=== PATIENT | female | born 1990 | race Two or more races ===

== ENCOUNTER 2018-08-19 09:49 | Emergency (ER) | payer MEDICAID ==
[~2018-08-19] VITALS: Ht 165.1 cm; Wt 82.0 kg
[2018-08-19] MEDS ORDERED: ONDANSETRON HCL 4MG/2ML INJ IV STA (10:45)
[2018-08-19] MEDS ORDERED: MORPHINE SULFATE 4 MG/ML CPJ (NOT FOR IM USE) IV STA (10:45)
[2018-08-19] MEDS ORDERED: SODIUM CHLORIDE 0.9% 1,000 ML IV ONE (10:45)
[2018-08-19 11:18] LABS: EOSINOPHILS % 1.9 % (0.0-5.0); HEMOGLOBIN. 12.9 g/dL (12.0-16.0); MEAN CORPUSCULAR VOLUME 96.9 fL (81.0-99.0); MONOCYTES % 11.4 % (2.0-8.0); NEUTROPHILS % 55.7 % (40.0-76.0); RED BLOOD CELL COUNT 3.92 mill/uL (4.2-5.4); RED CELL DISTRIBUTION WIDTH 12.6 % (11.6-14.6)
[2018-08-19 11:24] LABS: CHLORIDE 107 mEq/L (98-107)
[2018-08-19 11:27] LABS: PARTIAL THROMBOPLASTIN TIME 20.8 sec (23.4-31.0); PROTHROMBIN TIME 9.8 sec (9.1-11.1)
[2018-08-19 11:29] LABS: CLARITY URINE CLEAR (CLEAR); COLOR URINE YELLOW (YELLOW); KETONES URINE TRACE (NEGATIVE); LEUKOCYTE ESTERASE URINE NEGATIVE (NEGATIVE); NITRITE URINE NEGATIVE (NEGATIVE); OCCULT BLOOD URINE NEGATIVE (NEGATIVE); PROTEIN URINE NEGATIVE (NEGATIVE); SPECIFIC GRAVITY URINE 1.018 (1.005-1.030); UROBILINOGEN URINE 0.2 E.U./dL (0.2-1.0)
[2018-08-19 12:04] LABS: *AMPHETAMINES SCREEN URINE NEGATIVE (NEGATIVE); *BARBITURATES SCREEN URINE NEGATIVE (NEGATIVE); *BENZODIAZEPINES SCREEN URINE NEGATIVE (NEGATIVE); *COCAINE SCREEN URINE NEGATIVE (NEGATIVE); OPIATES URINE SCREEN NEGATIVE (NEGATIVE); PHENCYCLIDINE URINE SCREEN NEGATIVE (NEGATIVE)
[2018-08-19 12:07] LABS: METHADONE URINE SCREEN NEGATIVE (NEGATIVE)
[2018-08-19 12:08] LABS: CANNABINOID URINE SCREEN PRESUMTIVE POSITIVE (NEGATIVE)
[2018-08-19 12:08] LABS: MEAN PLATELET VOLUME 8.9 fl (7.4-10.4); PLATELET 240 x1000/uL (130-400)
[2018-08-19] MEDS ORDERED: IOHEXOL-300 100 ML BOTTLE ONE (12:27)
[2018-08-19 13:00] VITALS: BP 129/77
== END 2018-08-19 13:20 | disposition home or self-care (01) ==
LOC: ER 09:49
DX: S20.211A Contusion of right front wall of thorax, initial encounter (principal); S39.81XA Other specified injuries of abdomen, initial encounter; W18.39XA Other fall on same level, initial encounter; Y93.89 Activity, other specified; Y92.89 Other specified places as the place of occurrence of the external cause; Y99.8 Other external cause status
CPT/HCPCS: 36415; 71045; 71260; 74177; 80053; 80305; 81003; 81025; 83690; 85025; 85610; 85730; 86850; 86900; 86901; 96374; 96375; 99284; J2270; J2405; J7030; Q9967

== ENCOUNTER 2018-11-19 14:36 | Emergency (ER) | payer MEDICAID ==
[~2018-11-19] VITALS: Ht 162.6 cm; Wt 98.0 kg
[2018-11-19] MEDS ORDERED: IBUPROFEN 600MG TABLET PO ONE (16:15)
[2018-11-19 16:29] VITALS: BP 119/77
== END 2018-11-19 17:26 | disposition home or self-care (01) ==
LOC: ER 14:36
DX: M77.51 Other enthesopathy of right foot and ankle (principal)
CPT/HCPCS: 73630; 81025; 99283

== ENCOUNTER 2019-01-02 07:53 | Emergency (ER) | payer MEDICAID ==
[~2019-01-02] VITALS: Ht 162.6 cm; Wt 100.0 kg
[2019-01-02] MEDS ORDERED: SODIUM CHLORIDE 0.9% 1,000 ML IV ONE (08:32)
[2019-01-02 08:53] LABS: BASOPHILS % 0.9 % (0.0-2.0); EOSINOPHILS % 3.1 % (0.0-5.0); HEMATOCRIT. 41.4 % (36.0-48.0); HEMOGLOBIN. 14.1 g/dL (12.0-16.0); MEAN CORPUSCULAR HEMOGLOBIN 33.1 pg (28.0-32.0); MEAN CORPUSCULAR VOLUME 97.2 fL (81.0-99.0); MEAN PLATELET VOLUME 8.1 fl (7.4-10.4); MONOCYTES % 8.5 % (2.0-8.0); NEUTROPHILS % 70.5 % (40.0-76.0); PLATELET 269 x1000/uL (130-400); RED BLOOD CELL COUNT 4.26 mill/uL (4.2-5.4); RED CELL DISTRIBUTION WIDTH 12.5 % (11.6-14.6)
[2019-01-02 09:00] LABS: CHLORIDE 107 mEq/L (98-107)
[2019-01-02 09:22] LABS: HCG SCREEN NEGATIVE
[2019-01-02 09:57] LABS: CLARITY URINE CLEAR (CLEAR); COLOR URINE YELLOW (YELLOW); KETONES URINE NEGATIVE (NEGATIVE); LEUKOCYTE ESTERASE URINE NEGATIVE (NEGATIVE); NITRITE URINE NEGATIVE (NEGATIVE); OCCULT BLOOD URINE NEGATIVE (NEGATIVE); PH URINE 5.5 (4.5-8.0); PROTEIN URINE NEGATIVE (NEGATIVE); UROBILINOGEN URINE 0.2 E.U./dL (0.2-1.0)
[2019-01-02] MEDS ORDERED: KETOROLAC 15MG/ML VIAL IV ONE (10:00)
[2019-01-02 10:20] VITALS: BP 118/80
== END 2019-01-02 10:21 | disposition left against medical advice (07) ==
LOC: ER 08:09
DX: K80.20 Calculus of gallbladder without cholecystitis without obstruction (principal); R11.0 Nausea
CPT/HCPCS: 36415; 76705; 80053; 81003; 81025; 83690; 84703; 85025; 96374; 99284; J1885; J7030

== ENCOUNTER 2019-07-03 12:56 | Observation (INO) | payer MEDICAID ==
[~2019-07-03] VITALS: Ht 162.6 cm; Wt 103.4 kg
[2019-07-03] MEDS ORDERED: PREN1COM16 MT (13:50)
== END 2019-07-03 14:15 | disposition home or self-care (01) ==
LOC: 8 EST LDRP 12:56
PROVIDERS: ADMIT Specialist; ATTEND Specialist
DX: O26.892 Other specified pregnancy related conditions, second trimester (principal); R10.30 Lower abdominal pain, unspecified; Z3A.20 20 weeks gestation of pregnancy
CPT/HCPCS: 99281; G0378

== ENCOUNTER 2019-11-01 21:58 | Inpatient (IN) | payer MEDICAID ==
[~2019-11-01] VITALS: Ht 162.6 cm; Wt 116.1 kg
[~2019-11-01 21:58] MED LIST: PREN1COM16 MT
[2019-11-01] MEDS ORDERED: FOLI0.4T2 MT (22:53)
[2019-11-02] MEDS ORDERED: DEXT 5%/LACTATED RINGERS 1,000 ML IV SCH (00:07)
[2019-11-02] MEDS ORDERED: BUTORPHANOL TARTRATE 2 MG/ML VIAL IV PRN (00:15)
[2019-11-02] MEDS ORDERED: RHO(D) IMMUNE GLOBULIN 300 MCG/SYR IM ONE (00:15)
[2019-11-02] MEDS ORDERED: LIDOCAINE HCL 1% 20ML VIAL (Pyxis) INJ INFIL SCH (00:15)
[2019-11-02] MEDS ORDERED: NALOXONE HCL 0.4 MG/ML 1ML VIAL IM PRN (00:15)
[2019-11-02 02:00] LABS: CLARITY URINE CLEAR (CLEAR); COLOR URINE DARK YELLOW (YELLOW); KETONES URINE NEGATIVE (NEGATIVE); LEUKOCYTE ESTERASE URINE TRACE (NEGATIVE); NITRITE URINE NEGATIVE (NEGATIVE); OCCULT BLOOD URINE 2+ (NEGATIVE); PH URINE 5.5 (4.5-8.0); PROTEIN URINE 1+ (NEGATIVE); SPECIFIC GRAVITY URINE 1.034 (1.005-1.030)
[2019-11-02 02:01] LABS: BASOPHILS % 0.3 % (0.0-2.0); EOSINOPHILS % 1.1 % (0.0-5.0); HEMATOCRIT. 37.3 % (36.0-48.0); LYMPHOCYTES % 17.5 % (20.0-50.0); MEAN CORPUSCULAR HEMOGLOBIN 34.7 pg (28.0-32.0); MEAN CORPUSCULAR VOLUME 99.4 fL (81.0-99.0); MEAN PLATELET VOLUME 8.9 fl (7.4-10.4); MONOCYTES % 8.9 % (2.0-8.0); NEUTROPHILS % 72.2 % (40.0-76.0); PLATELET 211 x1000/uL (130-400); RED BLOOD CELL COUNT 3.75 mill/uL (4.2-5.4)
[2019-11-02 02:06] LABS: INR 0.9; PARTIAL THROMBOPLASTIN TIME 27.5 sec (23.4-31.0); PROTHROMBIN TIME 9.4 sec (9.6-11.0)
[2019-11-02 02:10] LABS: *AMPHETAMINES SCREEN URINE NEGATIVE (NEGATIVE); *BARBITURATES SCREEN URINE NEGATIVE (NEGATIVE); *BENZODIAZEPINES SCREEN URINE NEGATIVE (NEGATIVE); *COCAINE SCREEN URINE NEGATIVE (NEGATIVE); METHADONE URINE SCREEN NEGATIVE (NEGATIVE); OPIATES URINE SCREEN NEGATIVE (NEGATIVE)
[2019-11-02 02:11] LABS: CANNABINOID URINE SCREEN NEGATIVE (NEGATIVE); PHENCYCLIDINE URINE SCREEN NEGATIVE (NEGATIVE)
[2019-11-02 02:32] LABS: HEPATITIS B SURFACE ANTIGEN NEGATIVE
[2019-11-02] MEDS: DEXT 5%/LR + PITOCIN 20UNITS/L 1,000 ML IV SCH ×2 (02:49→11:12)
[2019-11-02 09:24] LABS: HEMOGLOBIN. 13.3 g/dL (12.0-16.0); MEAN CORPUSCULAR VOLUME 99.8 fL (81.0-99.0); MEAN PLATELET VOLUME 8.6 fl (7.4-10.4); PLATELET 221 x1000/uL (130-400); RED CELL DISTRIBUTION WIDTH 13.2 % (11.6-14.6)
[2019-11-02 09:28] LABS: CHLORIDE 107 mEq/L (98-107)
[2019-11-02 09:39] LABS: D-DIMER 2.18 mg/L FEU (<0.50); INR 0.9; PARTIAL THROMBOPLASTIN TIME 28.4 sec (23.4-31.0); PROTHROMBIN TIME 9.8 sec (9.6-11.0)
[2019-11-02] MEDS ORDERED: DEXT 5%/LR + PITOCIN 20UNITS/L 1,000 ML IV SCH (10:24)
[2019-11-02] MEDS ORDERED: GLYCERIN/WITCH HAZEL LEAF MEDICATED PAD TOP PRN (10:30)
[2019-11-02] MEDS ORDERED: BISACODYL 10MG SUPP PR PRN (10:30)
[2019-11-02] MEDS ORDERED: RHO(D) IMMUNE GLOBULIN 300 MCG/SYR IM PRN (10:30)
[2019-11-02] MEDS ORDERED: BENZOCAINE/LANOLIN/ALOE VERA SPRAY TOP PRN (10:30)
[2019-11-02] MEDS ORDERED: ACETAMINOPHEN WITH CODEINE 300/30MG TABLET PO PRN (10:30)
[2019-11-02] MEDS ORDERED: HEMORRHOIDAL SUPP PR PRN (10:30)
[2019-11-02] MEDS ORDERED: DIPHENHYDRAMINE 25MG CAPSULE PO PRN (10:30)
[2019-11-02] MEDS ORDERED: IBUPROFEN 800MG TABLET PO PRN (10:30)
[2019-11-02] MEDS ORDERED: IBUPROFEN 400MG TABLET PO PRN (10:30)
[2019-11-02 10:34] LABS: PLATELET ESTIMATE NORMAL
[2019-11-02 12:30] VITALS: BP 135/67
[2019-11-02 13:15] LABS: KETONES URINE 3+ (NEGATIVE); LEUKOCYTE ESTERASE URINE NEGATIVE (NEGATIVE); NITRITE URINE NEGATIVE (NEGATIVE); PROTEIN URINE 2+ (NEGATIVE); SPECIFIC GRAVITY URINE 1.025 (1.005-1.030); UROBILINOGEN URINE 0.2 E.U./dL (0.2-1.0)
[2019-11-02 13:17] LABS: CLARITY URINE CLOUDY (CLEAR); COLOR URINE BLOODY (YELLOW); OCCULT BLOOD URINE 3+ (NEGATIVE)
[2019-11-02 13:30] VITALS: BP 132/62
[2019-11-02] MEDS: LABETALOL HCL 100MG TABLET PO SCH (16:14)
[2019-11-02 17:09] VITALS: BP 126/49
[2019-11-02] MEDS ORDERED: DOCUSATE SODIUM 100MG CAPSULE PO SCH (21:00)
[2019-11-02] MEDS: MAGNESIUM/ALUMINUM HYDROXIDE/SIMETHICONE 30ML UDC PO SCH (21:17)
[2019-11-02] MEDS: SIMETHICONE 80MG TABLET CHEW PO SCH (21:20)
[2019-11-02 22:00] VITALS: BP 104/57
[2019-11-03 06:00] VITALS: BP 103/59
[2019-11-03 06:45] LABS: BASOPHILS % 0.2 % (0.0-2.0); EOSINOPHILS % 0.9 % (0.0-5.0); HEMATOCRIT. 32.5 % (36.0-48.0); HEMOGLOBIN. 11.2 g/dL (12.0-16.0); LYMPHOCYTES % 12.8 % (20.0-50.0); MEAN CORPUSCULAR HEMOGLOBIN 34.6 pg (28.0-32.0); MEAN CORPUSCULAR VOLUME 100.2 fL (81.0-99.0); MONOCYTES % 6.3 % (2.0-8.0); NEUTROPHILS % 79.8 % (40.0-76.0); PLATELET 195 x1000/uL (130-400); RED BLOOD CELL COUNT 3.24 mill/uL (4.2-5.4); RED CELL DISTRIBUTION WIDTH 13.3 % (11.6-14.6)
[2019-11-03 07:35] VITALS: BP 106/52
[2019-11-03] MEDS: LABETALOL HCL 100MG TABLET PO SCH (08:51)
[2019-11-03] MEDS: MAGNESIUM/ALUMINUM HYDROXIDE/SIMETHICONE 30ML UDC PO SCH ×2 (08:55→13:27)
[2019-11-03] MEDS: SIMETHICONE 80MG TABLET CHEW PO SCH ×2 (08:56→13:27)
[2019-11-03] MEDS ORDERED: PRENATAL VIT/FE FUMARATE/FA TABLET PO SCH (09:00)
== END 2019-11-03 16:00 | disposition home or self-care (01) | DRG 560 ==
LOC: 8 EST LDRP 21:58 → OBSVTOIN 21:58 → 8EST 11-02 11:55
PROVIDERS: ADMIT Obstetrics & Gynecology; ATTEND Obstetrics & Gynecology
PROC: 10E0XZZ Delivery of Products of Conception, External Approach (ICD-10-PCS; principal; 2019-11-01)
DX: O80 Encounter for full-term uncomplicated delivery (principal); Z37.0 Single live birth; Z3A.37 37 weeks gestation of pregnancy
CPT/HCPCS: 36415; 76805; 76818; 80053; 80305; 81003; 84550; 85025; 85379; 85384; 86592; 86703; 86762; 86850; 86900; 87340; 99281; J0595; J2590; J3490; Q0163

== ENCOUNTER 2023-03-26 19:14 | Emergency (ER) | payer MEDICAID ==
[~2023-03-26] VITALS: Ht 160 cm; Wt 123.0 kg
[2023-03-26 19:33] VITALS: TEMP 99.2; O2SAT 99
[2023-03-26 20:00] LABS: CLARITY URINE CLEAR (CLEAR); COLOR URINE YELLOW (YELLOW); GLUCOSE URINE NEGATIVE (NEGATIVE); KETONES URINE NEGATIVE (NEGATIVE); LEUKOCYTE ESTERASE URINE NEGATIVE (NEGATIVE); NITRITE URINE NEGATIVE (NEGATIVE); OCCULT BLOOD URINE 2+ (NEGATIVE); PROTEIN URINE NEGATIVE (NEGATIVE); SPECIFIC GRAVITY URINE 1.019 (1.005-1.030)
[2023-03-26 20:03] LABS: BACTERIA URINE NONE SEEN; SQUAMOUS EPITHELIAL CELL URINE 1+ /lpf (RARE/1+); WBC URINE 0-2 /hpf (0-2); YEAST URINE NONE SEEN
[2023-03-26 21:03] LABS: BASOPHILS % 0.8 % (0.0-2.0); EOSINOPHILS % 3.2 % (0.0-5.0); HEMATOCRIT. 40.5 % (36.0-48.0); HEMOGLOBIN. 13.9 g/dL (12.0-16.0); LYMPHOCYTES % 25.9 % (20.0-50.0); MEAN CORPUSCULAR HEMOGLOBIN 33.3 pg (28.0-32.0); MEAN CORPUSCULAR HGB CONC 34.2 g/dL (31.0-37.0); MEAN CORPUSCULAR VOLUME 97.3 fL (81.0-99.0); MEAN PLATELET VOLUME 7.9 fl (7.4-10.4); MONOCYTES % 7.5 % (2.0-8.0); NEUTROPHILS % 62.6 % (40.0-76.0); PLATELET 282 x1000/uL (130-400); RED BLOOD CELL COUNT 4.16 mill/uL (4.2-5.4); WHITE BLOOD COUNT 9.5 x1000/uL (4.5-11.0)
[2023-03-26 21:09] LABS: CHLORIDE 105 mEq/L (98-107); INDEX HEMOLYSI 1 (1-3); INDEX ICTERIC 1 (1-4); INDEX LIPEMIC 1 (1-3); POTASSIUM 3.5 mEq/L (3.5-5.1); SODIUM 136 mEq/L (136-145)
[2023-03-26 21:19] LABS: ALANINE AMINOTRANSFERASE 57 IU/L (13-61); ALBUMIN 3.7 g/dL (3.4-5.0); ASPARTATE AMINOTRANSFERASE 29 IU/L (15-37); BILIRUBIN TOTAL 0.3 mg/dL (0.1-1.0); CALCIUM 8.8 mg/dL (8.5-10.1); CARBON DIOXIDE 23 mEq/L (21-32); CREATININE 0.4 mg/dL (0.6-1.3); GLUCOSE 111 mg/dL (70-105); PROTEIN TOTAL 7.8 g/dL (6.0-8.3); UREA NITROGEN BLOOD 10 mg/dL (7-21)
[2023-03-26 23:41] VITALS: BP 132/84; PULSE 77; RESP 16
== END 2023-03-27 00:01 | disposition home or self-care (01) ==
LOC: ER 19:14
DX: O20.0 Threatened abortion (principal); Z3A.01 Less than 8 weeks gestation of pregnancy
CPT/HCPCS: 36415; 76801; 80053; 81003; 81025; 84702; 85025; 86850; 86900; 99284

== ENCOUNTER 2023-03-29 04:45 | Emergency (ER) | payer MEDICAID ==
[~2023-03-29] VITALS: Ht 160 cm; Wt 120.7 kg
[2023-03-29 04:51] VITALS: BP 120/72; PULSE 74; RESP 18; TEMP 98.3; O2SAT 98
[2023-03-29 06:28] LABS: BASOPHILS % 0.9 % (0.0-2.0); EOSINOPHILS % 2.6 % (0.0-5.0); HEMATOCRIT. 40.3 % (36.0-48.0); HEMOGLOBIN. 13.8 g/dL (12.0-16.0); LYMPHOCYTES % 20.3 % (20.0-50.0); MEAN CORPUSCULAR HEMOGLOBIN 33.1 pg (28.0-32.0); MEAN CORPUSCULAR HGB CONC 34.3 g/dL (31.0-37.0); MEAN CORPUSCULAR VOLUME 96.6 fL (81.0-99.0); MEAN PLATELET VOLUME 7.8 fl (7.4-10.4); MONOCYTES % 7.4 % (2.0-8.0); NEUTROPHILS % 68.8 % (40.0-76.0); PLATELET 282 x1000/uL (130-400); RED BLOOD CELL COUNT 4.17 mill/uL (4.2-5.4); RED CELL DISTRIBUTION WIDTH 13.1 % (11.6-14.6); WHITE BLOOD COUNT 8.5 x1000/uL (4.5-11.0)
[2023-03-29 06:39] LABS: CHLORIDE 106 mEq/L (98-107); INDEX HEMOLYSI 1 (1-3); INDEX ICTERIC 1 (1-4); INDEX LIPEMIC 1 (1-3); POTASSIUM 4.4 mEq/L (3.5-5.1); SODIUM 137 mEq/L (136-145)
[2023-03-29 07:01] LABS: ALANINE AMINOTRANSFERASE 58 IU/L (13-61); ALBUMIN 3.7 g/dL (3.4-5.0); ASPARTATE AMINOTRANSFERASE 32 IU/L (15-37); B-HCG QUANTITATIVE 13608 mIU/mL (<3); BILIRUBIN TOTAL 0.5 mg/dL (0.1-1.0); CALCIUM 9.5 mg/dL (8.5-10.1); CARBON DIOXIDE 27 mEq/L (21-32); CREATININE 0.6 mg/dL (0.6-1.3); GLUCOSE 121 mg/dL (70-105); PROTEIN TOTAL 8.1 g/dL (6.0-8.3); UREA NITROGEN BLOOD 9 mg/dL (7-21)
[2023-03-29] MEDS ORDERED: TOPUD MT (09:50)
== END 2023-03-29 10:05 | disposition home or self-care (01) ==
LOC: ER 04:45
DX: O02.0 Blighted ovum and nonhydatidiform mole (principal); Z3A.01 Less than 8 weeks gestation of pregnancy
CPT/HCPCS: 36415; 76801; 80053; 81025; 84702; 85025; 86850; 86900; 99284